=== PATIENT | female | born 1965 | race Caucasian/White ===

== ENCOUNTER 2017-01-25 21:41 | Emergency (ER) | payer MEDICAID ==
--- NOTE | 2017-01-25 22:14 | EDPHY ---
H & P Stated Complaint: abd pain since , worsening today HPI/ROS: HPI CHIEF COMPLAINT: Abdominal pain, nausea, vomiting since HISTORY OF PRESENT ILLNESS: This patient is a 51-year-old female she does have significant past medical history for chronic fatigue syndrome, fibromyalgia, cognitive disorder, lupus, remote history of abdominal plasty, otherwise no significant abdominal surgery she presents emergency room with abdominal pain with associated nausea vomiting. Patient states on or 5 days ago she developed some lower abdominal pain. She describes as sharp stabbing lower abdomen. It has been persistent since with associated nausea vomiting nonbilious nonbloody. No bloody stool. She denies chest pain or shortness of breath. Denies fever. She decided come the emergency room as the pain has gotten worse. Past Medical History: Chronic fatigue syndrome, fibromyalgia, lupus, cognitive disorder, diabetes Past Surgical History: Abdominal plasty Social History: Denies daily use drugs alcohol tobacco products. Unemployed. Lives locally in [place]. Family History: Noncontributory ROS REVIEW OF SYSTEMS: A comprehensive 10 point review of systems is otherwise negative aside from elements mentioned in the history of present illness. Exam Constitutional appears well nontoxic, triage nursing summary reviewed, vital signs reviewed, awake/alert. Eyes normal conjunctivae and sclera, EOMI, PERRLA. HENT normal inspection, atraumatic, moist mucus membranes, no epistaxis, neck supple/ no meningismus, no raccoon eyes. Respiratory clear to auscultation bilaterally, normal breath sounds, no respiratory distress, no wheezing. Cardiovascular rate normal, regular rhythm, no murmur, no edema, distal pulses normal. Gastrointestinal soft, mild tenderness palpation lower abdomen, right lower quadrant zoya-umbilical, , no rebound, no guarding, normal bowel sounds, no distension, no pulsatile mass. Genitourinary no CVA tenderness. Musculoskeletal no midline vertebral tenderness, full range of motion, no calf swelling, no tenderness of extremities, no meningismus, good pulses, neurovascularly intact. Skin pink, warm, & dry, no rash, skin atraumatic. Neurologic awake, alert and oriented x 3, AAOx3, moves all 4 extremities equally, motor intact, sensory intact, CN II-XII intact, normal cerebellar, normal vision, normal speech. Psychiatric normal mood/affect. Heme/Lymph/Immune no lymphadenopathy. Differential diagnosis includes but is not limited to and in no particular order : Bowel obstruction, appendicitis, gallbladder disease, diverticulitis, colitis , enteritis, perforated viscus, gastritis, GERD, esophagitis, urinary tract infection, pyelonephritis, kidney stones Medical Decision Making: Plan for this patient IV establishment, IV fluid bolus , 2 mg IV morphine for pain control 4 mg IV Zofran for nausea check basic blood work including lactic acid, urinalysis, CT scan abdomen pelvis with IV contrast rule out appendicitis. Re-evaluation: 0134AM: I did re-evaluate the patient at this time. Abdomen is soft nontender. She sitting up in a chair watching a movie. She is requesting discharge. I reviewed her blood work, urinalysis, CT scan. She has normal appendix on her CT scan. There is possible inflammation of the distal ileum. I did explain this to her. She does understand to come back to the emergency room if she develops worsening abdominal pain fever or vomiting. I will allow her to go home with a limited amount of [place]. Gastroenterology follow-up. She understands return if worse. Source: Patient - Personal History LMP (Females 10-55): Post Menopausal Current Tetanus/Diphtheria Vaccine: Unsure - Medical/Surgical History Hx Asthma: No Hx Chronic Respiratory Disease: No Hx Diabetes: Yes Hx Cardiac Disease: No Hx Renal Disease: No Hx Cirrhosis: No Hx Alcoholism: No Hx HIV/AIDS: No Hx Splenectomy or Spleen Trauma: No Other PMH: DM II, HTN, Discoid Lupus, Fibromyalgia, GERD, hiatal hernia, chronic fatigue syndrome - Social History Smoking Status: Current every day smoker Constitutional: Initial Vital Signs Temperature (C) 37.0 C 01/25/17 21:45 Heart Rate 112 H 01/25/17 21:45 Respiratory Rate 16 01/25/17 21:45 Blood Pressure 145/84 H 01/25/17 21:45 O2 Sat (%) 93 01/25/17 21:45 O2 Delivery Mode Room Air Allergies/Adverse Reactions: erythromycin base Allergy (Verified 01/25/17 21:51) Sulfa (Sulfonamide Antibiotics) Allergy (Verified 01/25/17 21:51) Tetracyclic Antidepressants Allergy (Verified 01/25/17 21:51) tetracycline Allergy (Verified 01/25/17 21:51) vancomycin Allergy (Verified 01/25/17 21:51) metformin Adverse Reaction (Verified 01/25/17 21:52) Home Medications: Medication Instructions Recorded CYCLOBENZAPRINE HCL [Flexeril] 10 mg PO HS 01/25/17 Duloxetine HCl [Cymbalta] 30 mg PO 01/25/17 Insulin Detemir [Levemir] 100 unit SQ 01/25/17 Insulin Regular Human [Humulin R 0 unit SC 01/25/17 100 units/ml (*)] Lisdexamfetamine Dimesylate 60 mg PO DAILY 01/25/17 [Vyvanse] Metoprolol Tartrate [Lopressor 100 100 mg PO BID 01/25/17 mg (*)] Hydrocodone/APAP 5/325 [[place] 1 - 2 tab PO Q4H PRN #7 tab 01/26/17 5/325] Medical Decision Making - Diagnostics Imaging Results: Imaging Impressions Abdomen CT 01/25/17 22:20 Impression: 1. Subserosal fibroid along the right side of the uterus. 2. No CT evidence of appendicitis, abscess or bowel obstruction. 3. Mild thickening of the mid to distal ileum. There is no surrounding inflammation. This could just be related to the degree of distention. Rule out mild ileitis. 4. Thickening of the dermis left lower quadrant near the symphysis level. Findings discussed with Carlos Phoenix MD at 0:20 hour, 01/26/2017. - Data Points Laboratory Results: Laboratory Results 01/25/17 22:25 01/25/17 22:25 01/26/17 01/25/17 01/25/17 00:47 22:25 22:25 WBC RBC Hgb Hct MCV MCH MCHC RDW Plt Count MPV Neut % (Auto) Lymph % (Auto) [place] % (Auto) Eos % (Auto) Baso % (Auto) Nucleat RBC Rel Count Absolute Neuts (auto) Absolute Lymphs (auto) Absolute Monos (auto) Absolute Eos (auto) Absolute Basos (auto) Absolute Nucleated RBC Immature Gran % Immature Gran # PT 13.7 SEC SEC (12.0-15.0) INR 1.06 (0.83-1.16) APTT 24.5 SEC SEC (23.0-38.0) VBG Lactic Acid Sodium 138 mEq/L mEq/L (134-144) Potassium 3.5 mEq/L mEq/L (3.5-5.2) Chloride 102 mEq/L mEq/L (97-110) Carbon Dioxide 20 mEq/l L mEq/l (22-31) Anion Gap 16 mEq/L mEq/L (8-16) BUN 18 mg/dL mg/dL (7-23) Creatinine 0.6 mg/dL mg/dL (0.6-1.0) Estimated GFR > 60 Glucose 109 mg/dL H mg/dL (70-100) Calcium 9.7 mg/dL mg/dL (8.5-10.4) Total Bilirubin Conjugated Bilirubin Unconjugated Bilirubin AST ALT Alkaline Phosphatase Total Protein Albumin Lipase Urine Color YELLOW Urine Appearance CLEAR Urine pH 6.0 (5.0-7.5) Ur Specific [place] > 1.035 H (1.002-1.030) Urine Protein NEGATIVE (NEGATIVE) Urine Ketones NEGATIVE (NEGATIVE) Urine Blood NEGATIVE (NEGATIVE) Urine Nitrate NEGATIVE (NEGATIVE) Urine Bilirubin NEGATIVE (NEGATIVE) Urine Urobilinogen NEGATIVE EU EU (0.2-1.0) Ur Leukocyte Esterase NEGATIVE (NEGATIVE) Urine Glucose NEGATIVE (NEGATIVE) 01/25/17 01/25/17 01/25/17 22:25 22:25 22:25 WBC 9.87 10^3/uL H 10^3/uL (3.80-9.50) RBC 4.78 10^6/uL 10^6/uL (4.18-5.33) Hgb 15.5 g/dL g/dL (12.6-16.3) Hct 43.6 % % (38.0-47.0) MCV 91.2 fL fL (81.5-99.8) MCH 32.4 pg pg (27.9-34.1) MCHC 35.6 g/dL g/dL (32.4-36.7) RDW 13.0 % % (11.5-15.2) Plt Count 220 10^3/uL 10^3/uL (150-400) MPV 10.1 fL fL (8.7-11.7) Neut % (Auto) 53.2 % % (39.3-74.2) Lymph % (Auto) 39.0 % % (15.0-45.0) Gillespie % (Auto) 5.7 % % (4.5-13.0) Eos % (Auto) 1.3 % % (0.6-7.6) Baso % (Auto) 0.5 % % (0.3-1.7) Nucleat RBC Rel Count 0.0 % % (0.0-0.2) Absolute Neuts (auto) 5.25 10^3/uL 10^3/uL (1.70-6.50) Absolute Lymphs (auto) 3.85 10^3/uL H 10^3/uL (1.00-3.00) Absolute Monos (auto) 0.56 10^3/uL 10^3/uL (0.30-0.80) Absolute Eos (auto) 0.13 10^3/uL 10^3/uL (0.03-0.40) Absolute Basos (auto) 0.05 10^3/uL 10^3/uL (0.02-0.10) Absolute Nucleated RBC 0.00 10^3/uL 10^3/uL (0-0.01) Immature Gran % 0.3 % % (0.0-1.1) Immature Gran # 0.03 10^3/uL 10^3/uL (0.00-0.10) PT INR APTT VBG Lactic Acid 0.8 mmol/L mmol/L (0.7-2.1) Sodium Potassium Chloride Carbon Dioxide Anion Gap BUN Creatinine Estimated GFR Glucose Calcium Total Bilirubin 1.0 mg/dL mg/dL (0.1-1.4) Conjugated Bilirubin 0.3 mg/dL mg/dL (0.0-0.5) Unconjugated Bilirubin 0.7 mg/dL mg/dL (0.0-1.1) AST 18 IU/L IU/L (14-46) ALT 35 IU/L IU/L (9-52) Alkaline Phosphatase 77 IU/L IU/L (38-126) Total Protein 7.5 g/dL g/dL (6.3-8.2) Albumin 4.6 g/dL g/dL (3.5-5.0) Lipase 118 IU/L IU/L (23-300) Urine Color Urine Appearance Urine pH Ur Specific [place] Urine Protein Urine Ketones Urine Blood Urine Nitrate Urine Bilirubin Urine Urobilinogen Ur Leukocyte Esterase Urine Glucose Medications Given: Discontinued Medications Hydromorphone HCl (Dilaudid) 0.5 mg IVP EDNOW ONE Stop: 01/26/17 00:38 Last Admin: 01/26/17 00:51 Dose: Not Given Sodium Chloride (Ns) 1,000 mls @ 0 mls/hr IV EDNOW ONE; Wide Open PRN Reason: Protocol Stop: 01/25/17 22:21 Last Admin: 01/25/17 22:33 Dose: 1,000 mls Morphine Sulfate (Morphine) 2 mg IVP EDNOW ONE Stop: 01/25/17 22:21 Last Admin: 01/25/17 22:35 Dose: 2 mg Ondansetron HCl (Zofran) 4 mg IVP EDNOW ONE Stop: 01/25/17 22:21 Last Admin: 01/25/17 22:34 Dose: 4 mg Departure - Departure Disposition: Home, Routine, Self-Care Clinical Impression: Abdominal pain Qualifiers: Abdominal location: generalized Qualified Code(s): R10.84 - Generalized abdominal pain Condition: Good Instructions: Acute Abdominal Pain (ED) Additional Instructions: 1. Return emergency room if he develops worsening abdominal pain fever vomiting. Referrals: Juan Suero MD [Primary Care Provider] - As per Instructions Chong Mayer MD, FACG [Medical Doctor] - As per Instructions Prescriptions: Hydrocodone/APAP 5/325 [[place] 5/325] 1 - 2 tab PO Q4H PRN #7 tab PRN Reason: Pain, Moderate
[2017-01-25] MEDS ORDERED: ONDANSETRON 4 MG/2 ML VIAL IVP ONE (22:20)
[2017-01-25] MEDS ORDERED: NS 1,000 ML IV ONE (22:20)
[2017-01-25 22:35] LABS: % IMMATURE GRANULYOCYTES 0.3 % (0.0-1.1); ABSOLUTE IMMATURE GRANULOCYTES 0.03 10^3/uL (0.00-0.10); ADD DIFF? NO; ADD MORPH? NO; ADD SCAN? NO; ATYPICAL LYMPHOCYTE FLAG 0 (0-99); FRAGMENT RBC FLAG 0 (0-99); HEMATOCRIT 43.6 % (38.0-47.0); HEMOGLOBIN 15.5 g/dL (12.6-16.3); LEFT SHIFT FLG 0 (0-99); LIPEMIA HEMOLYSIS FLAG 90 (0-99); MEAN CELL HEMOGLOBIN 32.4 pg (27.9-34.1); MEAN CELL HEMOGLOBIN CONCENTR. 35.6 g/dL (32.4-36.7); MEAN CELL VOLUME 91.2 fL (81.5-99.8); MEAN PLATELET VOLUME 10.1 fL (8.7-11.7); PLATELET CLUMPS FLAG 30 (0-99); PLATELET COUNT 220 10^3/uL (150-400); RED BLOOD CELL COUNT 4.78 10^6/uL (4.18-5.33)
[2017-01-25] MEDS ORDERED: IOPAMIDOL (ISOVUE-300) 100 ML BTL ONE (22:44)
[2017-01-25 22:45] LABS: INR 1.06 (0.83-1.16); PROTIME(PATIENT) 13.7 SEC (12.0-15.0)
[2017-01-25 22:46] LABS: ALBUMIN 4.6 g/dL (3.5-5.0); APTT 24.5 SEC (23.0-38.0); BILIRUBIN-CONJUGATED 0.3 mg/dL (0.0-0.5); BILIRUBIN-UNCONJUGATED 0.7 mg/dL (0.0-1.1); TOTAL PROTEIN 7.5 g/dL (6.3-8.2)
[2017-01-25 23:15] LABS: ANION GAP 16 mEq/L (8-16); CALCIUM 9.7 mg/dL (8.5-10.4); CARBON DIOXIDE 20 mEq/l (22-31); CHLORIDE 102 mEq/L (97-110); CREATININE 0.6 mg/dL (0.6-1.0); GLOMERULAR FILTRATION RATE > 60; GLUCOSE 109 mg/dL (70-100); POTASSIUM 3.5 mEq/L (3.5-5.2); SODIUM 138 mEq/L (134-144)
[2017-01-25 23:33] VITALS: TEMP 97.9
[2017-01-26] MEDS ORDERED: HYDROmorphONE/DILAUDID 1 MG/ML SYR IVP ONE (00:37)
[2017-01-26 01:20] LABS: COLOR YELLOW; LEUKOCYTE ESTERASE,URINE NEGATIVE (NEGATIVE); NITRITE,URINE NEGATIVE (NEGATIVE)
[2017-01-26 01:54] VITALS: BP 115/68; PULSE 65; RESP 16; O2SAT 93
== END 2017-01-26 01:55 | disposition home or self-care (01) ==
DX: R10.84 Generalized abdominal pain (principal); E86.9 Volume depletion, unspecified; E11.9 Type 2 diabetes mellitus without complications; I10 Essential (primary) hypertension; F17.200 Nicotine dependence, unspecified, uncomplicated; Z79.4 Long term (current) use of insulin
CPT/HCPCS: 96374; J1170; J2405; Q9967